=== PATIENT | male | born 1950 | race Caucasian/White ===

== ENCOUNTER 2017-10-27 11:03 | Day surgery (SDC) | payer OTHER ==
--- NOTE | 2017-10-25 11:45 | Pre-op HX & Phy Repo 2 SIG ---
DATE OF ADMISSION: 10/27/2017 PRE-ENDOSCOPY HISTORY AND PHYSICAL REASON FOR EVALUATION: Scheduled for outpatient Amin pouch endoscopy on October 27, 2017. 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 He also has a lodged in the pouch for several years. The patient developed ulcerative colitis in 1964 and 1968. He underwent proctocolectomy with Susanne ileostomy. In 1999, he underwent conversion of his malfunctioning ileostomy to a Amin continent intestinal reservoir continent ileostomy. He underwent revision of redundant stoma and access segment in April 2002, and revision of stoma stricture in November 2002, and again superficial revision of a stoma stricture in 2007. The patient states the stoma to be getting smaller and his pouchitis is difficult to control. He takes Cipro 500 mg every 12 hours and Flagyl 250 mg 3 times daily. He has used Rowasa irrigated into the pouch in the past with some benefit, but at times, it was not helpful. He has been advised to try hydrocortisone rectal suspension enemas and did briefly and got much better, however, he stopped the cortisone enemas due to cost as it was not covered by his insurance. The patient is scheduled to undergo pouch endoscopy. PAST MEDICAL HISTORY: MEDICATIONS: Diazepam, Synthroid, Adderall for and depression, Lamictal, and risperidone. ALLERGIES: None. OPERATIONS: In addition to the above, he has had a partial thyroidectomy with radioactive iodine treatment in 1974, incision and drainage of staphylococcus infection of right groin in 1982, and excision of a left acoustic neuroma in 1997. REVIEW OF SYSTEMS: The patient has a bicuspid aortic valve with minimal dilatation and no stenosis, and also has known gallstones that are asymptomatic. PHYSICAL EXAMINATION: The patient is thin. [place] and [place] be examined upon arrival and dictated separately. IMPRESSION: 1. Malfunctioning Amin continent ileostomy with recurrent stoma stenosis and intractable pouchitis. 2. History of ulcerative colitis. 3. Status post multiple abdominal operations. 3.1. Proctocolectomy with Susanne ileostomy in 1968. 3.2. Amin continent intestinal reservoir in 1999. 3.3. Revision of redundant stoma and access segment in 2001. 3.4. Revision of stoma stricture in 2002. 3.5. Revision of superficial stoma stricture in 2007. 4. Thyroid replacement medication. DISCUSSION: The patient understands the need for pouch endoscopy, which does not require any anesthesia or sedation. He agrees to proceed and understands the procedure, having been through this before. Arthur Hollis M.D. DR: Chin JOB#: [id number] CC:
[~2017-10-27] VITALS: Ht 172.7 cm; Wt 70.3 kg
--- NOTE | 2017-10-27 11:32 | Pre-Procedure Note/Attestation ---
Pre-Procedure Note/Attestation Complete Prior to Procedure Planned Procedure: not applicable Procedure Narrative: Amin Continent Intestinal [place] pouch endoscopy Indications for Procedure Pre-Operative Diagnosis: malfunctioning Amin Pouch with chronic pouchitis and stoma stenosis Attestation I attest that I discussed the nature of the procedure; its benefits; risks and complications; and alternatives (and the risks and benefits of such alternatives ), prior to the procedure, with the patient (or the patient's legal in store marketing representative). I attest that, if there was a reasonable possibility of needing a blood transfusion, the patient (or the patient's legal in store marketing representative) was given the [facility] standardized written summary, pursuant to the Rory Brooke Blood Safety Act ([place] Health and Safety Code # 1645, as amended). I attest that I re-evaluated the patient just prior to the surgery and that there has been no change in the patient's H&P, except as documented below: none Arthur Hollis MD Oct 27, 2017 11:32
[2017-10-27] MEDS ORDERED: ADDERAL20 MG ORAL (12:01)
[2017-10-27] MEDS ORDERED: SYNTHROID150 MCG ORAL (12:01)
[2017-10-27 12:07] VITALS: BP 111/71
--- NOTE | 2017-10-27 12:33 | Brief Operative Note ---
Immediate Post Operative Note Operative Note Pre-op Diagnosis: malfunctioning Amin Pouch with chronic pouchitis and stoma stenosis Procedure: Amin pouch endoscopy Post-op Diagnosis: diffuse pouchitis and stoma stenosis Post-op Diagnosis: same as pre-op Findings: consistent w/pre-op dx studies Surgeon: dandre Anesthesia: other - none Specimen: none Complications: none Condition: stable Fluids: none Estimated Blood Loss: none Drains: none Implant(s) used?: No Arthur Hollis MD Oct 27, 2017 12:33
[2017-10-27 12:40] VITALS: BP 107/77
--- NOTE | 2017-10-27 16:15 | Procedure Note ---
DATE OF PROCEDURE: 10/27/2017 ENDOSCOPIST: Arthur Hollis M.D. ANESTHESIA: None. SEDATION: None. PRE-ENDOSCOPIC DIAGNOSES: 1. Malfunctioning Amin continent intestinal reservoir with treatment resistant chronic pouchitis and recurrent stoma stenosis. 2. History of ulcerative colitis. 3. Status post multiple abdominal operations including proctocolectomy with Susanne ileostomy in 1968 followed by creation of a Amin continent intestinal reservoir in 1999, followed by revisions in 2001 and stoma stenosis revisions in 2002 and 2007. POST-ENDOSCOPIC DIAGNOSES: 1. Malfunctioning Amin continent intestinal reservoir with treatment resistant chronic pouchitis and recurrent stoma stenosis. 2. History of ulcerative colitis. 3. Status post multiple abdominal operations including proctocolectomy with Susanne ileostomy in 1968 followed by creation of a Amin continent intestinal reservoir in 1999, followed by revisions in 2001 and stoma stenosis revisions in 2002 and 2007. ENDOSCOPY PERFORMED: Amin pouch endoscopy. FINDINGS: Diffuse pouchitis. Angulation of the access segment and approximately 4 to 5 cm depth with the distance to the tip of the nipple valve approximately 7 cm. There was a guitar pick in the pouch with smooth edges. DESCRIPTION OF PROCEDURE: The patient was taken to the GI lab and first examined. The patient is 5 foot 8 inches, 155 pounds. The abdomen is soft and flat. There is a midline scar with a very tiny umbilical incisional hernia, reducible, about which the patient is not even aware. There are several right lower quadrant and groin scars and the stoma of his Amin pouch is low in the left lower quadrant. It is approximately 8 mm and barely admits a 30-Thai Medena catheter. I first dilated the stoma starting with a 24-Thai Martin and a 26-Thai and finally 28-Thai Martin with a larger catheter meeting the point of resistance described above. Each time I flushed out the pouch contents. Then I used a GIF-P140 endoscope visualizing the angulation of the tract. The pouch was entered and it was mildly distensible. There was diffuse pouchitis with inflammation and superficial ulceration. The guitar pick was visualized. The afferent anastomosis of the pouch was normal. Retroflexed views revealed a fairly well-formed nipple valve with slight angulation. Withdrawal views confirmed the above findings. After the procedure, I inserted a 26-Thai Martin catheter back into the pouch and evacuated retained air. The patient will require more intensive treatment for pouchitis and ultimately revision of the stoma stenosis. He tolerated the endoscopy well. Arthur Hollis M.D. DR: RAMA JOB#: [id number] CC:
== END 2017-10-27 13:05 | disposition home or self-care (01) ==
LOC: GAS 11:03
DX: K91.850 Pouchitis (principal); K51.90 Ulcerative colitis, unspecified, without complications; Z90.49 Acquired absence of other specified parts of digestive tract